=== PATIENT | male | born 1985 | race Two or more races ===

== ENCOUNTER 2016-12-19 12:01 | Emergency (ER) | payer SELFPAY ==
[2016-12-19 12:09] VITALS: BMI 24.0
--- NOTE | 2016-12-19 12:48 | PDOC ---
History of Present Illness - General Chief Complaint: Pain, Acute Stated Complaint: NAUSEA, DIZZINESS Time Seen by Provider: 12/19/16 12:48 History Source: Patient Exam Limitations: No Limitations - History of Present Illness Initial Comments: 12/19/16 12:48 CHIEF COMPLAINT: Vomiting HISTORY OF PRESENT ILLNESS: This is an otherwise healthy 31 year old male who presents for evaluation of right-sided abdominal pain and vomiting with hematemesis today. He denies fevers/chills, constipation, diarrhea, or any other symptoms. He denies alcohol use. He reports very occasional NSAID use (maybe once/yr). No family history of GI cancers or other problems. Vital signs on arrival are unremarkable. REVIEW OF SYSTEMS: GENERAL/CONSTITUTIONAL: No fever or chills. No weakness. No weight change. HEAD, EYES, EARS, NOSE AND THROAT: No change in vision. No ear pain or discharge. No sore throat. CARDIOVASCULAR: No chest pain or palpitations. RESPIRATORY: No cough, wheezing, or shortness of breath. GASTROINTESTINAL: See HPI. GENITOURINARY: No dysuria, frequency, or change in urination. MUSCULOSKELETAL: No joint or muscle swelling or pain. No neck or back pain. SKIN: No rash or easy bruising. NEUROLOGIC: No headache, vertigo, loss of consciousness, or loss of sensation. PSYCHIATRIC: No depression or anxiety. ENDOCRINE: No increased thirst. No abnormal weight change. HEMATOLOGIC/LYMPHATIC: No anemia, easy bleeding, or history of blood clots. ALLERGIC/IMMUNOLOGIC: No hives or skin allergy. No latex allergy. PHYSICAL EXAM: GENERAL: The patient is awake, alert, and fully oriented, in no acute distress. HEAD: Normal with no signs of trauma. ENT: Pupils equal, round and reactive to light, extraocular movements intact, sclera anicteric, conjunctiva clear. Neck supple. LUNGS: Clear to auscultation bilaterally. Normal excursion. No respiratory distress or use of accessory muscles. CV: RRR, S1/S2, no MRG. Cap refill < 2 sec. ABDOMEN: Soft, non-distended, tenderness to deep palpation RLQ and RUQ. EXTREMITIES: Normal range of motion, no edema. NEUROLOGICAL: Normal speech, normal gait. CN II-XII grossly intact. PSYCH: Normal mood, normal affect. SKIN: Warm, dry, normal turgor, no rashes or lesions noted. Past History - Past Medical History Allergies/Adverse Reactions: Allergies Allergy/AdvReac Type Severity Reaction Status Date / Time No Known Allergies Allergy Verified 12/19/16 12:05 Home Medications: Ambulatory Orders NK [No Known Home Medication] 10/27/14 Other medical history: DNEIES. - Psycho/Social/Smoking Cessation Hx Anxiety: No Suicidal Ideation: No Smoking Status: Yes Smoking History: Current every day smoker Have you smoked in the past 12 months: Yes Number of Cigarettes Smoked Daily: 2 Information on smoking cessation initiated: No Hx Alcohol Use: Yes Substance Use Type: Alcohol *Physical Exam - Vital Signs Last Vital Signs Temp Pulse Resp BP Pulse Ox 98 F 55 L 19 119/71 100 12/19/16 12:05 12/19/16 12:05 12/19/16 12:05 12/19/16 12:05 12/19/16 12:05 ED Treatment Course - LABORATORY CBC & Chemistry Diagram: 12/19/16 13:15 12/19/16 13:15 Medical Decision Making - Medical Decision Making 12/19/16 14:26 A/P: 31 year old male with right-sided abdominal pain and hematemesis. 1. Labs including CBC, comp, lipase 2. Stool for occult blood 3. CTAP with PO/IV contrast 4. Zofran 4mg IVP for nausea 5. Patient declines analgesia H/H within normal limits at 15.1/44.9 Stool for occult blood is negative 12/19/16 16:56 -Remainder of labs unremarkable -CTAP with PO/IV contrast demonstrates no acute pathology -Tolerating oral fluids -Will dc with GI followup, return precautions *DC/Admit/Observation/Transfer Diagnosis at time of Disposition: Vomiting Abdominal pain Qualifiers: Abdominal location: right lower quadrant Qualified Code(s): R10.31 - Right lower quadrant pain - Discharge Dispostion Disposition: HOME Condition at time of disposition: Stable Admit: No - Referrals Referrals: Bozena Carbone MD [Staff Physician] - Call tomorrow (Primary care) - Patient Instructions Printed Discharge Instructions: DI for Abdominal Pain-Adult, [place] Diet Additional Instructions: -Rest and stay well-hydrated -Eat a bland diet (instructions enclosed) -Call for an appointment with primary care - no insurance needed (contact information enclosed) -Return for worsening pain, blood in the stool or vomit, inability to keep down fluids, or any other concerning symptoms - Post Discharge Activity Work/School Note: Back to Work
[2016-12-19] MEDS ORDERED: ONDANSETRON 4 MG/2 ML VIAL IVPUSH ONE (13:10)
[2016-12-19] MEDS ORDERED: ONDANSETRON 4 MG/2 ML VIAL ONE (13:10)
[2016-12-19 13:16] LABS: STOOL FOR OCCULT BLOOD NEGATIVE (NEGATIVE)
[2016-12-19 13:23] LABS: BASOPHIL 0.8 % (0-2.0); EOSINOPHIL 9.6 % (0-4.5); MCH 31.5 pg (25.7-33.7); MCHC 33.7 g/dl (32.0-35.9); MEAN CELL VOLUME 93.3 fl (80-96); MEAN PLT VOLUME 8.6 fl (7.5-11.1); NEUTROPHILS 40.5 % (42.8-82.8); PLATELET COUNT 190 K/MM3 (134-434); RDW 12.9 % (11.9-15.9); WHITE BLOOD COUNT 7.3 K/mm3 (4.0-10.0)
[2016-12-19 13:49] LABS: ANION GAP 7 (8-16); CALCIUM 9.2 mg/dL (8.5-10.1); CO2 27 mmol/L (21-32); CREATININE 0.9 mg/dL (0.7-1.3); GLUCOSE,RANDOM 83 mg/dL (74-106); SGPT/ALT 26 U/L (12-78)
[2016-12-19 13:51] LABS: ALK PHOS 39 U/L (45-117); BILIRUBIN,TOTAL 0.5 mg/dL (0.2-1.0); TOT PROT 7.3 g/dl (6.4-8.2)
[2016-12-19 14:03] LABS: SGOT/AST 23 U/L (15-37)
[2016-12-19] MEDS ORDERED: FAMOTIDINE 20 MG/50 ML IVPB 20 MG in PREMIX 50 IVPB ONE (16:57)
[2016-12-19] MEDS ORDERED: FAMOTIDINE 20 MG/50 ML IVPB 50 ML IVPB ONE (17:01)
[2016-12-19 17:22] LABS: URINE COLOR STRAW
[2016-12-19 17:23] LABS: URINE APPEARANCE CLEAR; URINE BILIRUBIN NEGATIVE (NEGATIVE); URINE BLOOD NEGATIVE (NEGATIVE); URINE GLUCOSE (UA) NEGATIVE (NEGATIVE); URINE KETONE NEGATIVE (NEGATIVE)
[2016-12-19 17:24] LABS: URINE LEUK ESTERASE NEGATIVE (NEGATIVE); URINE NITRITE NEGATIVE (NEGATIVE); URINE PROTEIN NEGATIVE (NEGATIVE); URINE UROBILINOGEN NORMAL mg/dL (0.2-1.0)
[2016-12-19 17:26] VITALS: BP 122/74; PULSE 66; TEMP 98.6
== END 2016-12-19 17:23 | disposition home or self-care (01) ==
LOC: JER 12:01
PROC: 3E033GC Introduction of Other Therapeutic Substance into Peripheral Vein, Percutaneous Approach (ICD-10-PCS; principal; 2016-12-19)
DX: R10.31 Right lower quadrant pain (principal); K92.0 Hematemesis; F17.210 Nicotine dependence, cigarettes, uncomplicated
CPT/HCPCS: 36415; 71010-TC; 74177-TC; 80053; 81003; 82272; 85025; 85610; 86850; 86900; 86901; 99282-25

== ENCOUNTER 2018-01-18 01:03 | Emergency (ER) | payer SELFPAY ==
[2018-01-18 01:07] VITALS: BP 124/71; PULSE 50; TEMP 98.6; BMI 24.4
[2018-01-18] MEDS ORDERED: ONDANSETRON 4 MG/2 ML VIAL IVPUSH ONE (01:17)
[2018-01-18] MEDS ORDERED: SODIUM CHLORIDE 1,000 ML IV STA (01:17)
--- NOTE | 2018-01-18 01:17 | PDOC ---
History of Present Illness - General Chief Complaint: Pain, Acute Stated Complaint: WEAKNESS/VOMITTING Time Seen by Provider: 01/18/18 01:10 History Source: Patient Exam Limitations: No Limitations - History of Present Illness Travel History: No Initial Comments: 01/18/18 01:17 HISTORY OF PRESENT ILLNESS: 32-year-old male without significant medical history presents emergency department for evaluation of diffuse abdominal pain for the past 3 days. Patient states he seen and evaluated here last week for back injury sustained while working as been taking Motrin as prescribed. He states after 3 days of Motrin began to express diffuse abdominal pain which he describes as a cramping sensation and has been vomiting and unable to tolerate PO's for 3 days. Patient states last time he vomited he saw a little bit of blood and became concerned which is his stated reason for evaluation. He denies fevers, chills, sick contacts, back pain, chest pain, shortness of breath, dysuria, rectal bleeding. No recent travel or sick contacts. 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 Denies tobacco, alcohol, illicit drug use. SURGICAL HISTORY: Denies ALLERGIES: No known drug allergies REVIEW OF SYSTEMS General/Constitutional: Denies fever or chills. Denies weakness, weight change. HEENT: Denies change in vision. Denies ear pain or discharge. Denies sore throat. Cardiovascular: Denies chest pain or shortness of breath. Respiratory: Denies cough, wheezing, or hemoptysis. Gastrointestinal: see HPI Genitourinary: Denies dysuria, frequency, or change in urination. Musculoskeletal: Denies joint or muscle swelling or pain. Denies neck or back pain. Skin and breasts: Denies rash or easy bruising. Neurologic: Denies headache, vertigo, loss of consciousness, or loss of sensation. Psychiatric: Denies depression or anxiety. Endocrine: Denies increased thirst. Denies abnormal weight change. Hematologic/Lymphatic: Denies anemia, easy bleeding, or history of blood clots. Allergic/Immunologic: Denies hives or skin allergy. Denies latex allergy. PHYSICAL EXAM General Appearance: Well-appearing, appropriately dressed. No apparent distress , no intoxication. HEENT: EOMI, PERRLA, normal ENT inspection, normal voice, TMs normal, pharynx normal. No conjunctival pallor. No photophobia, scleral icterus. Neck: Supple. Trachea midline. No tenderness, rigidity, carotid bruit, stridor , lymphadenopathy, or thyromegaly. Respiratory/Chest: Lungs CTAB. No shortness of breath, chest tenderness, respiratory distress, accessory muscle use. No crackles, rales, rhonchi, stridor , wheezing, dullness Cardiovascular: RRR. S1, S2. No JVD, murmur, bradycardia, tachycardia. Vascular Pulses: Dorsalis-Pedis (R): 2+, Dorsalis-Pedis (L): 2+ Gastrointestinal/Abdominal: Normal bowel sounds. Abdomen soft, non-distended. Diffuse tenderness. No rebound tenderness. No organomegaly, pulsatile mass, guarding, hernia, hepatomegaly, splenomegaly. Lymphatic: No adenopathy, tenderness. Musculoskeletal/Extremities: Normal inspection. FROM of all extremities, normal capillary refill. Pelvis Stable. No CVA tenderness. No tenderness to extremities, pedal edema, swelling, erythema or deformity. Integumentary: Appropriate color, dry, warm. 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 Fully oriented, alert. Appropriate mood/affect. Motor strength 5/5. No appreciable EOM palsy, facial droop or sensory deficit. Past History - Past Medical History Allergies/Adverse Reactions: Allergies Allergy/AdvReac Type Severity Reaction Status Date / Time No Known Allergies Allergy Verified 01/18/18 01:04 Home Medications: Ambulatory Orders Cyclobenzaprine HCl [Flexeril -] 10 mg PO HS #10 tablet 01/09/18 Ibuprofen 800 mg PO TID #30 tablet 01/09/18 CVA: No COPD: No DVT: No - Immunization History Immunization Up to Date: No - Suicide/Smoking/Psychosocial Hx Smoking Status: Yes Smoking History: Never smoked Have you smoked in the past 12 months: No Number of Cigarettes Smoked Daily: 2 Information on smoking cessation initiated: No Hx Alcohol Use: No Drug/Substance Use Hx: No Substance Use Type: Alcohol *Physical Exam - Vital Signs Last Vital Signs Temp Pulse Resp BP Pulse Ox 98.6 F 50 L 18 124/71 100 01/18/18 01:04 01/18/18 01:04 01/18/18 01:04 01/18/18 01:04 01/18/18 01:04 ED Treatment Course - LABORATORY CBC & Chemistry Diagram: 01/18/18 01:35 01/18/18 01:35 Medical Decision Making - Medical Decision Making 01/18/18 01:25 A/P: 32-year-old male with diffuse abdominal pain vomiting for 3 days Normoactive bowel sounds Abdomen soft but diffusely tender No masses present No CVA tenderness DDx: Pancreatitis, GERD, gastritis Labs, IVF, CTAP, Maalox, zofran 01/18/18 02:25 EKG is sinus bradycardia rate of 48. Normal intervals noted. No T-wave inversions, ST depressions or ST elevations noted. Laboratory testing is unremarkable. 01/18/18 03:26 CAT scan as read by imaging sales operations lead: No acute pathology With normal labs and CAT scan findings, most likely this is gastric irritation from NSAID use. I will discharge the patient home with follow-up with primary doctor. *DC/Admit/Observation/Transfer Diagnosis at time of Disposition: Gastritis Qualifiers: Gastritis type: other gastritis Chronicity: acute Gastritis bleeding: presence of bleeding unspecified Qualified Code(s): K29.00 - Acute gastritis without bleeding - Discharge Dispostion Disposition: HOME Condition at time of disposition: Fair Decision to Admit order: No - Referrals Referrals: Tony Basilio MD [Staff Physician] - - Patient Instructions Printed Discharge Instructions: DI for Gastritis, [place] Diet Additional Instructions: Avoid Motrin use. Take Tylenol as directed by manufacturers instructions for any pain you're experiencing. Use Maalox as directed by manufacturers instructions. Eat a bland diet heavy with bananas, rice, applesauce and toast. Avoid spicy foods Return to emergency department for any concerns. - Post Discharge Activity
[2018-01-18] MEDS ORDERED: MAG HYDROX/AL HYDROX/SIMETH 30 ML UNIT-DOSE CUP PO ONE (01:20)
[2018-01-18] MEDS ORDERED: MAG HYDROX/AL HYDROX/SIMETH 30 ML UNIT-DOSE CUP ONE (01:35)
[2018-01-18] MEDS ORDERED: ONDANSETRON 4 MG/2 ML VIAL ONE (01:35)
[2018-01-18 01:47] LABS: BASO % 0.8 % (0-2.0); HEMATOCRIT 41.8 % (35.4-49); HEMOGLOBIN 14.1 GM/dL (11.7-16.9); LYMPH % 14.2 % (8-40); MCH 31.3 pg (25.7-33.7); MCHC 33.8 g/dl (32.0-35.9); MEAN CELL VOLUME 92.6 fl (80-96); MONO % 7.8 % (3.8-10.2); NEUT % 77.2 % (42.8-82.8); PLATELET COUNT 196 K/MM3 (134-434); RBC 4.51 M/mm3 (4.00-5.60); RDW 12.9 % (11.9-15.9); WHITE BLOOD COUNT 11.9 K/mm3 (4.0-10.0)
[2018-01-18 02:06] LABS: ALBUMIN 4.2 g/dl (3.4-5.0); ANION GAP 10 MMOL/L (8-16); BILIRUBIN,TOTAL 0.6 mg/dL (0.2-1.0); BLOOD UREA NITROGEN 14 mg/dL (7-18); CALCIUM 9.2 mg/dL (8.5-10.1); CHLORIDE 102 mmol/L (98-107); CO2 28 mmol/L (21-32); CREATININE 1.2 mg/dL (0.7-1.3); GLUCOSE,RANDOM 125 mg/dL (74-106); LIPASE 128 U/L (73-393); POTASSIUM 3.7 mmol/L (3.5-5.1); SGOT/AST 16 U/L (15-37); SGPT/ALT 30 U/L (12-78); SODIUM 140 mmol/L (136-145); TOT PROT 7.8 g/dl (6.4-8.2)
[2018-01-18 02:07] LABS: ALK PHOS 45 U/L (45-117)
--- NOTE | 2018-01-18 03:40 | PDOC ---
*Physical Exam - Vital Signs Last Vital Signs Temp Pulse Resp BP Pulse Ox 98.6 F 50 L 18 124/71 100 01/18/18 01:04 01/18/18 01:04 01/18/18 01:04 01/18/18 01:04 01/18/18 01:04 ED Treatment Course - LABORATORY CBC & Chemistry Diagram: 01/18/18 01:35 01/18/18 01:35 - ADDITIONAL ORDERS Additional order review: Laboratory Results 01/18/18 01:35 Sodium 140 Potassium 3.7 Chloride 102 Carbon Dioxide 28 Anion Gap 10 BUN 14 Creatinine 1.2 Creat Clearance w eGFR > 60 Random Glucose 125 H D Calcium 9.2 Total Bilirubin 0.6 AST 16 D ALT 30 Alkaline Phosphatase 45 Total Protein 7.8 Albumin 4.2 Lipase 128 01/18/18 01:35 RBC 4.51 MCV 92.6 MCHC 33.8 RDW 12.9 MPV 9.0 Neutrophils % 77.2 D Lymphocytes % 14.2 D Monocytes % 7.8 Eosinophils % 0.0 D Basophils % 0.8 - Medications Given in the ED: ED Medications Discontinued Medications Generic Name Dose Route Start Last Admin Trade Name Mickq PRN Reason Stop Dose Admin Al Hydroxide/Mg Hydroxide 30 ml 01/18/18 01:20 01/18/18 01:15 Mylanta Oral Suspension - PO 01/18/18 01:21 30 ml ONCE ONE Administration Sodium Chloride 1,000 mls @ 1,000 mls/hr 01/18/18 01:17 01/18/18 01:15 Normal Saline - IV 01/18/18 02:16 1,000 mls/hr ASDIR STA Administration Ondansetron HCl 4 mg 01/18/18 01:17 01/18/18 01:15 Zofran Injection IVPUSH 01/18/18 01:18 4 mg ONCE ONE Administration Medical Decision Making - Medical Decision Making 01/18/18 03:39 agree with care from STEVE Askew *DC/Admit/Observation/Transfer Diagnosis at time of Disposition: Gastritis Qualifiers: Gastritis type: other gastritis Chronicity: acute Gastritis bleeding: presence of bleeding unspecified Qualified Code(s): K29.00 - Acute gastritis without bleeding - Discharge Dispostion Disposition: HOME Condition at time of disposition: Fair - Referrals Referrals: Tony Basilio MD [Staff Physician] - - Patient Instructions Printed Discharge Instructions: [place] Diet, DI for Gastritis Additional Instructions: Avoid Motrin use. Take Tylenol as directed by manufacturers instructions for any pain you're experiencing. Use Maalox as directed by manufacturers instructions. Eat a bland diet heavy with bananas, rice, applesauce and toast. Avoid spicy foods Return to emergency department for any concerns. - Post Discharge Activity
--- NOTE | 2018-01-18 15:35 | EKG ---
Test Reason : Blood Pressure : / mmHG Vent. Rate : 048 BPM Atrial Rate : 048 BPM P-R Int : 140 ms QRS Dur : 088 ms QT Int : 418 ms P-R-T Axes : 047 049 032 degrees QTc Int : 373 ms SINUS BRADYCARDIA MINIMAL VOLTAGE CRITERIA FOR LVH, MAY BE NORMAL VARIANT BORDERLINE ECG NO PREVIOUS ECGS AVAILABLE Confirmed by Carina Moore ([id number]) on 01/18/2018 3:34:43 PM Referred By: Confirmed By:Carina Moore
== END 2018-01-18 03:56 | disposition home or self-care (01) ==
LOC: JER 01:03
PROC: 3E033GC Introduction of Other Therapeutic Substance into Peripheral Vein, Percutaneous Approach (ICD-10-PCS; principal; 2018-01-18)
DX: K29.00 Acute gastritis without bleeding (principal)
CPT/HCPCS: 36415; 74177-TC; 80053; 83690; 85025; 93005; 93010; 99282-25; J7030